=== PATIENT | male | born 1945 | race Caucasian/White ===

== ENCOUNTER 2016-05-28 05:25 | Observation (INO) | payer OTHER, MEDICARE ==
--- NOTE | 2016-05-27 14:33 | GHP ---
[f rep st] PREOP HISTORY AND PHYSICAL ADMISSION DIAGNOSIS: Presacral lesion. HISTORY OF PRESENT ILLNESS: This is a 70-year-old gentleman who presents because of recurrent episodes of hematuria. This was evaluated and he had no findings related to the genitourinary tract, but he has a presacral lesion that has increased in size from 0.8 x 0.9 cm in 2009 to 2.7 x 1.9 cm now. He is admitted for robotic-assisted removal of that lesion. Indication and complications discussed. He has reviewed this case and had a second opinion by Dr. Bates who concurs this is the appropriate treatment. PAST MEDICAL HISTORY: He has had past history of erectile dysfunction, hematuria, hypertension, hypercholesterolemia and bladder dysfunction requiring an InterStim treatment. PAST SURGICAL HISTORY: Kidney stones, InterStim and then bladder surgery. MEDICATIONS: Amlodipine, atorvastatin, Benicar, citalopram, lansoprazole, metformin, metoprolol, Norvasc, Prevacid. ALLERGIES: None. FAMILY HISTORY: Kidney stones. SOCIAL HISTORY: Nonsmoker. Nondrinker. REVIEW OF SYSTEMS: Negative cardiac, respiratory, GI and endocrine. PHYSICAL EXAMINATION: VITAL SIGNS: Stable. CHEST: Clear. HEART: Regular rate and rhythm. ABDOMEN: Normal. No organomegaly, rebound, or guarding. EXTREMITIES: Lower extremities are normal. PLAN: He is admitted for the above procedure. Indications, complications, options, and potential need for open surgery have been discussed. /[id number]/MODL MTDD
[2016-05-28] MEDS ORDERED: LIDOCAINE 1% 5 ML SDV ONE (06:04)
[2016-05-28] MEDS ORDERED: SKIN ADHESIVE (DERMABOND) 1 EACH TP ONE (06:44)
[2016-05-28] MEDS ORDERED: BUPIVACAINE 0.5% 30 ML SDV ONE (06:44)
[2016-05-28] MEDS ORDERED: GLYCOPYRROLATE 0.2 MG/1 ML VIAL ONE (07:07)
[2016-05-28] MEDS ORDERED: ROCURONIUM 100 MG/10 ML VIAL ONE ×3 (07:07→08:57)
[2016-05-28] MEDS ORDERED: PROPOFOL 200 MG/20 ML VIAL ONE (07:08)
[2016-05-28] MEDS ORDERED: fentaNYL 100 MCG/2 ML INJ ONE ×2 (07:08→10:05)
[2016-05-28] MEDS ORDERED: MIDAZOLAM 2 MG/2 ML VIAL ONE (07:16)
[2016-05-28] MEDS ORDERED: ceFAZolin 2 GM/DEXTROSE 100 ML IV ONE (07:30)
[2016-05-28] MEDS ORDERED: ONDANSETRON 4 MG/2 ML VIAL ONE (10:04)
[2016-05-28] MEDS ORDERED: KETOROLAC 30 MG/1 ML SDV ONE (10:04)
[2016-05-28] MEDS ORDERED: SUGAMMADEX SODIUM 200 MG/2 ML VIAL IVP ONE ×2 (10:05→10:24)
[2016-05-28] MEDS ORDERED: ONDANSETRON DISINTEGRATING 4 MG TAB PO PRN (10:50)
[2016-05-28] MEDS ORDERED: oxyCODONE IR 5 MG TAB PO PRN (10:50)
[2016-05-28] MEDS ORDERED: ACETAMINOPHEN 325 MG TAB PO PRN (10:50)
[2016-05-28] MEDS ORDERED: ONDANSETRON 4 MG/2 ML VIAL IVP PRN (10:50)
[2016-05-28] MEDS ORDERED: ZOLPIDEM TARTRATE 5 MG TAB PO PRN (10:50)
[2016-05-28 11:25] LABS: HEMATOCRIT 40.4 % (40.0-51.0); HEMOGLOBIN 13.9 g/dL (13.7-17.5)
--- NOTE | 2016-05-28 11:31 | GOP ---
[f rep st] OPERATIVE REPORT DATE OF OPERATION: 05/28/2016 SURGEON: Neno Alexis MD [employer] [employer] EXAMINER: Kamille Ortiz. ANESTHESIA: General. ANESTHESIOLOGIST: Dr. Foley. PREOPERATIVE DIAGNOSIS: Presacral mass. POSTOPERATIVE DIAGNOSIS: Presacral mass/frozen section hemangioma, benign-appearing. PROCEDURE PERFORMED: Robotic-assisted excision of presacral mass. FINDINGS: SPECIMENS: Sent to pathology. ESTIMATED BLOOD LOSS: Per anesthesia was minimal. After closure of the wounds, Dermabond was placed. A sterile dressing placed over the Bebeto-Patel drain site, and that drain was sewn in place with a 3-0 silk. Marcaine was used to do injection of t he port sites. He will be admitted for postoperative care. DESCRIPTION OF PROCEDURE: After appropriate timeout and undergoing general anesthesia, patient was p repped and draped in normal sterile fashion. I made a small incision above the umbilicus, and insuff lated his abdomen to 15 mmHg and of CO2, and then at that point, on inspection, he had adhesions over the sigmoid colon on the left side, and took those down. At that point, I placed three 8 mm ports an d an assistant printer floor covering 12 mm port under direct vision. Then, we docked the robot and with a 30 degree down l ens, fenestrated bipolar and monopolar scissors, mobilized the sigmoid colon and went medi al to the ureter, and then followed down to where I could identify the sacral promontory, dissected d own to identify the mass, and scooped it out of the concavity of the sacrum, and hemostasis provided with electrocautery throughout the dissection. Then, removed the mass in toto and sent it to patholo jerilyn, and the frozen section revealed a benign appearing vascular lesion compared to hemangioma. At th at point, I irrigated the wound and there was no bleeding and placed Surgicel after turning the intra abdominal pressure down to 5 mm, and then placed Surgicel in that space, and then a Bebeto-Patel epi in in the presacral space that was brought out through an 8 mm port site. The 12 mm port sites were reapproximated with a fascial suture closure device, 0 Vicryl. The wounds were irrigated and the ski n was approximated with 4-0 Monocryl. COMPLICATIONS: None. /[id number]/MODL
[2016-05-28] MEDS ORDERED: D50W 25 GM/50 ML SYR IVP PRN (13:00)
[2016-05-28] MEDS: NS 1,000 ML IV SCH (14:03)
--- NOTE | 2016-05-28 16:43 | GCON ---
[f rep st] CONSULTATION HISTORY OF PRESENT ILLNESS: A 70-year-old male, presenting for surgical excision of a presacral lesi on. Patient is being evaluated by hospital consultation postsurgical. Patient is comfortable sittin g in bed. Denies any abdominal pain, chest pain, shortness of breath, nausea. Has taken some juice postoperatively without complication. Reports some back discomfort related to the bed, otherwise den ies any acute pain symptoms. Denies any recent fevers or chills, lower extremity edema, ashes. Cammie ent is a diabetic and has very tight glycemic control at home. PAST MEDICAL HISTORY: 1. Diabetes. 2. Hypertension. 3. Hyperlipidemia. SOCIAL HISTORY: Negative for tobacco. Occasional alcohol. No illicit drugs or marijuana. FAMILY HISTORY: Negative for diabetes or heart disease. REVIEW OF SYSTEMS: Ten-point review of systems is negative with the exception of that reported in th e HPI. PHYSICAL EXAMINATION: VITAL SIGNS: Blood pressure is 114/50, heart rate 57, respiratory rate 18, 95 % on 1 L. GENERAL: This is an obese-appearing male, in no acute distress. HEENT: Notable for dry mucous membranes. Eyes negative for any icterus. CARDIAC: Patient is regular rate and rhythm. A s ystolic murmur is appreciated at the apex. PULMONARY: Good respiratory effort. Clear to auscultati on bilaterally. GASTROINTESTINAL: Positive bowel sounds. Abdomen is soft. He is nontender to palp ation in all 4 quadrants. MUSCULOSKELETAL: Negative for any lower extremity edema. SKIN: Negative for any rashes. NEUROLOGIC: Patient is alert and oriented x3. PSYCHIATRIC: He is pleasant and co operative on interview and examination. DATA REVIEWED: Hematocrit 40.4, hemoglobin 13.9. Blood glucose of 199. Telemetry, which I personall y reviewed and interpreted, shows sinus rhythm, bradycardia. ASSESSMENT AND PLAN: This is a 70-year-old male with history diabetes, hypertension, hyperlipidemia, postoperatively from a presacral surgery. 1. Acute hypotension: Suspect this is likely related to anesthesia. Will continue IV fluid resusci tation while the patient's oral intake is low and follow his blood pressures. I have put his blood p ressure medications from home on hold until we see overall improvement/increase in his blood pressure s. 2. Sinus bradycardia: It sounds like this is rather chronic for the patient. He is without complai nts, without dizziness or symptoms. Will continue to monitor on telemetry overnight again, holding h is metoprolol until we see change in his heart rates. 3. Diabetes: Will hold the patient's metformin while inpatient. Have written for sliding scale insu solange. 4. Gastroesophageal reflux disease: Will continue his lansoprazole. 5. Prophylaxis when cleared by Urology. 6. Diet as tolerated. DISPOSITION: I expect greater than 2-midnights as the patient is requiring monitoring postsurgical f or blood pressure and heart rate stability. Discussed the case with Dr. Alexis. [facility] will follow along. Thank you for the consultation. /[id number]/MODL
[2016-05-28] MEDS: INSULIN LISPRO 100 UNIT/ML SC SCH (17:28)
[2016-05-28] MEDS ORDERED: metFORMIN HCL 500 MG TAB PO SCH (18:00)
[2016-05-28] MEDS ORDERED: MIRTAZAPINE 30 MG ODTAB PO SCH (21:00)
[2016-05-28] MEDS ORDERED: MAGNESIUM OXIDE 400 MG TAB PO SCH (21:00)
[2016-05-28] MEDS ORDERED: CITALOPRAM 20 MG TAB PO SCH (21:00)
[2016-05-28] MEDS ORDERED: ALLOPURINOL 300 MG TAB PO SCH (21:00)
[2016-05-28] MEDS ORDERED: ASPIRIN EC 81 MG TAB PO SCH (21:00)
[2016-05-28] MEDS ORDERED: NON-FORMULARY NEW DRUG (Atorvastatin Calcium [Atorvastatin Calcium] 80 MG) PO SCH (21:00)
[2016-05-28] MEDS ORDERED: OMEGA-3 FATTY ACIDS 1,000 MG CAP PO SCH (21:00)
[2016-05-29] MEDS: NS 1,000 ML IV SCH (00:50)
[2016-05-29 05:34] LABS: % IMMATURE GRANULYOCYTES 0.3 % (0.0-1.1); ABSOLUTE IMMATURE GRANULOCYTES 0.04 10^3/uL (0.00-0.10); ADD DIFF? NO; ADD MORPH? NO; ADD SCAN? NO; ATYPICAL LYMPHOCYTE FLAG 10 (0-99); FRAGMENT RBC FLAG 0 (0-99); HEMATOCRIT 36.7 % (40.0-51.0); HEMOGLOBIN 12.6 g/dL (13.7-17.5); LEFT SHIFT FLG 0 (0-99); LIPEMIA HEMOLYSIS FLAG 90 (0-99); MEAN CELL HEMOGLOBIN 30.7 pg (27.9-34.1); MEAN CELL HEMOGLOBIN CONCENTR. 34.3 g/dL (32.4-36.7); MEAN CELL VOLUME 89.5 fL (81.5-99.8); MEAN PLATELET VOLUME 8.8 fL (8.7-11.7); PLATELET CLUMPS FLAG 0 (0-99); PLATELET COUNT 193 10^3/uL (150-400); RED CELL DISTRIBUTION WIDTH 13.9 % (11.5-15.2)
[2016-05-29 05:51] LABS: ANION GAP 6 mEq/L (8-16); CALCIUM 8.3 mg/dL (8.5-10.4); CARBON DIOXIDE 24 mEq/l (22-31); CHLORIDE 106 mEq/L (97-110); CREATININE 0.8 mg/dL (0.7-1.3); GLOMERULAR FILTRATION RATE > 60; GLUCOSE 116 mg/dL (70-100); POTASSIUM 4.7 mEq/L (3.5-5.2); SODIUM 136 mEq/L (134-144)
[2016-05-29] MEDS ORDERED: PNEUMOC 13-VAL CONJ-DIP CRM/PF 0.5 ML SYR IM ONE (08:06)
[2016-05-29] MEDS: INSULIN LISPRO 100 UNIT/ML SC SCH ×2 (08:07→13:09)
[2016-05-29] MEDS ORDERED: HYDROCHLOROTHIAZIDE 25 MG TAB PO SCH (09:00)
[2016-05-29] MEDS ORDERED: ATORVASTATIN CALCIUM 40 MG TAB PO SCH (09:00)
[2016-05-29] MEDS ORDERED: LANSOPRAZOLE SUSP 3 MG/ML UDSYR (Peds) PO SCH (09:00)
[2016-05-29] MEDS ORDERED: HYDROCHLOROTHIAZIDE PO SCH (09:00)
[2016-05-29] MEDS ORDERED: PANTOPRAZOLE SODIUM 40 MG TAB PO SCH (09:00)
[2016-05-29] MEDS ORDERED: METOPROLOL SUCCINATE XR 25 MG TAB PO SCH (09:00)
[2016-05-29] MEDS ORDERED: [UNRECOGNIZED DRUG - OTHER] PO SCH (09:00)
[2016-05-29] MEDS ORDERED: OLMESARTAN MEDOXOMIL 20 MG TAB PO SCH (09:00)
[2016-05-29] MEDS ORDERED: OLMESARTAN PO SCH (09:00)
--- NOTE | 2016-05-29 11:31 | HOSPPROG ---
Hospitalist Progress Note Assessment/Plan: # Acute hypotension- postoperative suspicious related to hypovolemia and anesthesia- blood pressures improving to the systolic 120s this morning - held amlodipine combination ARB hydrochlorothiazide and metoprolol overnight - would hold blood pressure medicines today as BP still not requiring treatment - once SBP> 140 would restart meds 1 at a time at home while checking blood pressures- starting with: 1. combination ARB/hydrochlorothiazide 2. metoprolol (reduced dose) 3. Norvasc # acute bradycardia- telemetry personally reviewed and interpreted shows sinus rhythm in the 60s this morning suspect the heart rates in the 40s and 50s yesterday related to his home dosing of metoprolol - would reduce dose by half when re-initiating # diabetes- very well controlled continue home regimen of metformin- creatinine normal this morning # disposition patient is safe for discharge home today from medicine perspective would have him restart blood pressure medicines as outlined above and follow with his primary care provider for blood pressure check in the next 7 -14 days I have discussed the case with nursing- patient is recovering well postoperatively ambulating without complication and tolerating p.o. Subjective: very little pain Objective: Vital Signs Temp Pulse Resp BP Pulse Ox 36.7 C 68 13 124/67 H 92 05/29/16 04:00 05/29/16 07:56 05/29/16 07:56 05/29/16 07:56 05/29/16 07:56 Laboratory Results 05/29/16 05:09 05/29/16 05:09 05/28/16 05/29/16 05/30/16 05:59 05:59 05:59 Intake Total 4330 Output Total 940 Balance 3390 - Physical Exam Constitutional: appears nourished Eyes: anicteric sclera Ears, Nose, Mouth, Throat: moist mucous membranes Cardiovascular: regular rate and rhythym Respiratory: no respiratory distress, no rales or rhonchi Gastrointestinal: normoactive bowel sounds, soft, non-tender abdomen Genitourinary: no bladder fullness Skin: warm, normal color Musculoskeletal: No asymmetric calves Neurologic: AAOx3 Psychiatric: interacting appropriately, not anxious Lymph, Heme, Immunologic: no cervical LAD ICD10 Worksheet Patient Problems: Problems Problem Status Diagnosed Hemangioma of other sites Acute Presacral mass Acute
[2016-05-29 11:57] VITALS: BP 120/57; PULSE 64; RESP 17; TEMP 97.9; O2SAT 91
[2016-05-29] MEDS ORDERED: HYDROCOD/APAP 5/325 PREPACK#6 BTL TAKEHOME ONE (13:17)
--- NOTE | 2016-05-29 14:16 | GDS ---
[f rep st] DISCHARGE SUMMARY PREOPERATIVE DIAGNOSIS: Presacral mass. POSTOPERATIVE DIAGNOSIS: Presacral mass/frozen section, hemangioma benign-appearing. HOSPITAL COURSE: This is a pleasant patient who after lengthy discussion in our office was consented and admitted for a robotic-assisted excision of presacral mass, which he underwent without difficult y. The patient is being discharged home in good condition and is to follow up in our office next linden arndt for review of pathology and assessment of symptoms postoperatively. /[id number]/MODL
== END 2016-05-29 15:21 | disposition home or self-care (01) ==
LOC: F1N 05:25 → INTOOBSV 05:25 → F2W 12:59
PROVIDERS: ADMIT Specialist; ATTEND Specialist
PROC: 0WBH4ZX Excision of Retroperitoneum, Percutaneous Endoscopic Approach, Diagnostic (ICD-10-PCS; principal; 2016-05-28 07:15)
PROC: 8E0W4CZ Robotic Assisted Procedure of Trunk Region, Percutaneous Endoscopic Approach (ICD-10-PCS; principal; 2016-05-28 07:15)
DX: D18.09 Hemangioma of other sites (principal); R00.1 Bradycardia, unspecified; I95.81 Postprocedural hypotension; E78.5 Hyperlipidemia, unspecified; I10 Essential (primary) hypertension; E11.9 Type 2 diabetes mellitus without complications; Z23 Encounter for immunization
CPT/HCPCS: 49329; 88305; 88307; 88331; 90670; G0009; J1815; J1885; J2250; J2405; J2704; J3010; J0690

== ENCOUNTER → 2016-07-14 | Outpatient (CLI) | payer OTHER, MEDICARE | LOC: BMCIMAGING 11:15 | PROVIDERS: ATTEND Internal Medicine Endocrinology, Diabetes & Metabolism | DX: E04.2 Nontoxic multinodular goiter (principal); Z98.890 Other specified postprocedural states | CPT/HCPCS: 76536-PO ==

== ENCOUNTER → 2018-05-02 | Outpatient (CLI) | payer OTHER, MEDICARE | LOC: BMCIMAGING 14:29 | DX: I25.10 Atherosclerotic heart disease of native coronary artery without angina pectoris (principal); E04.2 Nontoxic multinodular goiter | CPT/HCPCS: 76536-PO ==